=== PATIENT | female | born 1995 | race Hispanic/Latino ===

== ENCOUNTER 2017-06-20 00:47 | Emergency (ER) | payer SELFPAY ==
[~2017-06-20] VITALS: Ht 172.7 cm; Wt 49.9 kg
[2017-06-20 03:45] VITALS: BP 134/78
== END 2017-06-20 03:45 | disposition home or self-care (01) ==
LOC: ER 00:47
DX: R00.2 Palpitations (principal)
CPT/HCPCS: 93005; 99282